=== PATIENT | male | born 1980 | race Hispanic/Latino ===

== ENCOUNTER 2022-01-27 15:05 | Emergency (ER) | payer OTHER ==
[~2022-01-27] VITALS: Ht 167.6 cm; Wt 156.5 kg
[2022-01-27 15:09] VITALS: BP 121/66
[2022-01-27] MEDS ORDERED: 0.9%NACL 1000ML 1,000 ML IV ONE (15:30)
[2022-01-27 15:39] LABS: BASOPHILS % (AUTO) 0.3 % (0.0-5.0); EOSINOPHILS % (AUTO) 1.7 % (0.0-8.0); HEMATOCRIT 49.4 % (42-54); LYMPHOCYTES % (AUTO) 25.5 % (21.0-51.0); MEAN CORPUSCULAR HEMOGLOBIN 22.4 pg (27.0-33.0); MEAN CORPUSCULAR VOLUME 74.7 fL (79-99); MONOCYTES % (AUTO) 6.1 % (3.0-13.0); PLATELET COUNT (AUTO) 327 K/uL (130-400); RED BLOOD CELL COUNT(AUTO) 6.61 MIL/uL (4.50-6.20); RED CELL DISTRIBUTION WIDTH 20.1 % (11.0-15.5); WHITE BLOOD COUNT (AUTO) 14.5 K/uL (4.8-10.8)
[2022-01-27 15:52] LABS: CREATININE 1.1 mg/dL (0.5-1.5); POTASSIUM 4.2 mmol/L (3.5-5.1)
[2022-01-27 15:57] LABS: ALBUMIN 3.2 g/dL (3.5-5.0); BILIRUBIN,TOTAL 0.2 mg/dL (0.2-1.0); TOTAL PROTEIN, SERUM 8.3 g/dL (6.0-8.3)
[2022-01-27 16:55] LABS: APPEARANCE,URINE CLEAR (CLEAR); BILIRUBIN,URINE NEGATIVE (NEGATIVE); COLOR,URINE YELLOW (YELLOW); GLUCOSE, URINE (UA) >=1000 mg/dL (NEGATIVE); KETONES,URINE NEGATIVE (NEGATIVE); LEUKOCYTE ESTERASE ,URINE NEGATIVE (NEGATIVE); NITRATE,URINE NEGATIVE (NEGATIVE); OCCULT BLOOD,URINE NEGATIVE (NEGATIVE); PH,URINE 5.5 (5.0-8.0); PROTEIN,URINE NEGATIVE (NEGATIVE); UROBILINOGEN,URINE 0.2 mg/dL (0.2-1.0)
[2022-01-27] MEDS ORDERED: GLYB2.5T6 PO (17:09)
[2022-01-27 17:16] LABS: BACTERIA,URINE Rare /HPF (None Seen); RBC,URINE 0-1 /HPF (0-1)
[2022-01-27 17:17] LABS: MUCUS,URINE Rare LPF (None Seen); SQUAMOUS EPITHELIAL CELL,UR Few /HPF (0-2)
== END 2022-01-27 17:37 | disposition home or self-care (01) ==
LOC: EDH 15:05
DX: E10.65 Type 1 diabetes mellitus with hyperglycemia (principal); E78.00 Pure hypercholesterolemia, unspecified; I10 Essential (primary) hypertension; I48.91 Unspecified atrial fibrillation; E86.0 Dehydration; Z95.0 Presence of cardiac pacemaker
CPT/HCPCS: 36415; 80053; 81001; 82948; 85025; 96360; 99283; J7030

== ENCOUNTER → 2024-03-02 | Outpatient (CLI) | payer OTHER ==
[~2024-03-02] MED LIST: GLYB2.5T6 PO
== END | disposition home or self-care (01) ==
LOC: RAH 15:12
PROVIDERS: ATTEND Internal Medicine
DX: S60.222A Contusion of left hand, initial encounter (principal); X58.XXXA Exposure to other specified factors, initial encounter; Y93.89 Activity, other specified; Y92.89 Other specified places as the place of occurrence of the external cause; Y99.8 Other external cause status
CPT/HCPCS: 72040; 73120